=== PATIENT | female | born 1975 | race Hispanic/Latino ===

== ENCOUNTER 2016-12-19 09:14 | Outpatient (CLI) | payer BC ==
[2016-12-19 10:13] LABS: Free T4 (Free Thyroxine) 0.82 ng/dL (0.70-1.48); Thyroid Stimulating Hormone 5.9321 uIU/mL (0.35-4.94)
== END 2016-12-19 09:15 | disposition home or self-care (01) ==
LOC: NAV LAB 09:14
PROVIDERS: ATTEND Family Medicine
DX: E03.9 Hypothyroidism, unspecified (principal)
CPT/HCPCS: 84439; 84443; 84481

== ENCOUNTER 2019-05-25 07:51 | Outpatient (CLI) | payer BC ==
--- NOTE | 2019-05-25 10:13 | ULT ---
GALLBLADDER ULTRASOUND: HISTORY: Elevated LFTs. FINDINGS: Liver echogenicity is borderline heterogeneous. The gallbladder demonstrates no evidence of gallston es, wall thickness, edema, or pericholecystic fluid. Common bile duct within normal limits. Visuali zed pancreas and right kidney are unremarkable. IMPRESSION: No significant acute process. Borderline heterogeneous liver. POS: [facility]
== END 2019-05-25 07:52 | disposition home or self-care (01) ==
LOC: NAV ULT 07:51
PROVIDERS: ATTEND Family Medicine
DX: R74.8 Abnormal levels of other serum enzymes (principal); K76.89 Other specified diseases of liver
CPT/HCPCS: 76705